=== PATIENT | female | born 1950 | race Caucasian/White ===

== ENCOUNTER 2022-11-21 06:31 | Day surgery (SDC) | payer MEDICARE ==
[~2022-11-21 06:31] MED LIST: Lactated Ringers 1,000 ML IV PRN; Sodium Chloride 0.9% 10 ML Syringe FLUSH PRN
[2022-11-21] MEDS ORDERED: Sodium Chloride 0.9% 10 ML Syringe IV ONE (06:32)
[2022-11-21] MEDS ORDERED: fentaNYL 100 MCG/2 ML SDV IV ONE (06:32)
[2022-11-21] MEDS ORDERED: Midazolam 1 MG/ML 2 ML SDV IV ONE (06:32)
[2022-11-21] MEDS ORDERED: acetaZOLAMIDE 500 MG Cap.ER PO ONE (08:45)
== END 2022-11-21 09:08 | disposition home or self-care (01) ==
LOC: FB.SDS 06:31
PROVIDERS: ATTEND Ophthalmology
DX: H26.9 Unspecified cataract (principal); I10 Essential (primary) hypertension; J44.9 Chronic obstructive pulmonary disease, unspecified; E66.01 Morbid (severe) obesity due to excess calories; Z87.891 Personal history of nicotine dependence; Z79.899 Other long term (current) drug therapy; Z68.35 Body mass index [BMI] 35.0-35.9, adult
CPT/HCPCS: 00732; 66984; A9270; J2250; J3010; J3490; V2632

== ENCOUNTER 2022-12-05 06:37 | Day surgery (SDC) | payer MEDICARE ==
[2022-12-05] MEDS ORDERED: Sodium Chloride 0.9% 10 ML Syringe IV ONE (06:38)
[2022-12-05] MEDS ORDERED: Midazolam 1 MG/ML 2 ML SDV IV ONE (06:38)
[2022-12-05] MEDS ORDERED: fentaNYL 100 MCG/2 ML SDV IV ONE (06:38)
[2022-12-05] MEDS ORDERED: Sodium Chloride 0.9% 10 ML Syringe FLUSH PRN (06:45)
[2022-12-05] MEDS ORDERED: Lactated Ringers 1,000 ML IV PRN (06:45)
[2022-12-05] MEDS ORDERED: acetaZOLAMIDE 500 MG Cap.ER PO ONE (08:30)
== END 2022-12-05 09:10 | disposition home or self-care (01) ==
LOC: FB.SDS 06:37
PROVIDERS: ATTEND Ophthalmology
DX: H26.9 Unspecified cataract (principal); I10 Essential (primary) hypertension; J44.9 Chronic obstructive pulmonary disease, unspecified; E66.01 Morbid (severe) obesity due to excess calories; Z79.899 Other long term (current) drug therapy; Z87.891 Personal history of nicotine dependence; Z68.35 Body mass index [BMI] 35.0-35.9, adult
CPT/HCPCS: 00142; 66984; A9270; J2250; J3010; J3490; V2632

== ENCOUNTER 2023-06-11 17:11 | Emergency (ER) | payer MEDICARE ==
[2023-06-11 18:05] LABS: INFLUENZA A NAA NEGATIVE (NEGATIVE); INFLUENZA B NAA NEGATIVE (NEGATIVE); RESPIRATORY SYNCYTIAL VIR NAA NEGATIVE (NEGATIVE)
[2023-06-11 18:07] LABS: CORONAVIRUS COVID-19 NAA NEGATIVE (NEGATIVE)
[2023-06-11] MEDS: Albuterol/Ipratropium 3.0-0.5 MG/3 ML Neb Soln NEB ONE ×3 (18:15→20:10)
[2023-06-11] MEDS: predniSONE 20 MG Tab PO ONE (18:15)
[2023-06-11 18:19] LABS: BLOOD UREA NITROGEN,BUN 15 mg/dL (7-18); CALCIUM 9.4 mg/dL (8.6-10.2); CARBON DIOXIDE,CO2 27 mmol/L (21-32); CHLORIDE,CL 100 mmol/L (100-110); EST CRCL DRUG DOSING (CG) 38.94 mL/min; ESTIMATED GFR 60 mL/min (>60); GLUCOSE RANDOM 128 mg/dL (80-116); POTASSIUM,K 4.1 mmol/L (3.5-5.3); SODIUM,NA 138 mmol/L (135-145)
[2023-06-11 18:24] LABS: A/G RATIO 0.8; ALANINE AMINOTRANSFERASE,ALT 37 U/L (12-36); ALBUMIN 3.8 g/dL (3.2-4.6); ALKALINE PHOSPHATASE 115 IU/L (56-112); ASPARTATE AMNIOTRANSFERASE,AST 29 IU/L (5-25); BILIRUBIN TOTAL 0.5 mg/dL (0.1-1.3); C-REACTIVE PROTEIN 2.33 mg/dL (<0.50); PROTEIN TOTAL,TP 8.4 g/dL (6.0-8.0)
[2023-06-11 18:31] LABS: HEMATOCRIT 41.6 % (34.2-48.2); HEMOGLOBIN 13.8 g/dL (11.4-15.5); MEAN CORPUSCULAR HEMOGLOBIN 28.4 pg (23.9-33.9); MEAN CORPUSCULAR HGB CONC 33.1 g/dL (31.9-34.8); MEAN CORPUSCULAR VOLUME 85.5 fL (76.7-100.5); MEAN PLATELET VOLUME 7.4 fL (7.1-12.4); PLATELET COUNT,PLT 427 x10(3)uL (151-488); RED BLOOD CELL COUNT 4.87 x10(6)uL (3.60-5.20); RED CELL DISTRIBUTION WIDTH 13.8 % (12.3-16.5); WHITE BLOOD CELL COUNT,WBC 12.9 x10-3/uL (3.0-10.3)
[2023-06-11 18:32] LABS: TROPONIN I < 4.0 pg/mL (4.0-60.3)
[2023-06-11 19:10] LABS: EOSINOPHILS PERCENT MAN 1 % (0-5); LYMPHOCYTES PERCENT MAN 14 % (13-37); MONOCYTES PERCENT MAN 3 % (4-12); SEG NEUTROPHILS PERCENT MAN 82 % (46-82)
[2023-06-11] MEDS: Iopamidol 755 Mg/ML 100 ML Bottle IV SCH (20:14)
[2023-06-11] MEDS: cefTRIAXone 1 GM in Sodium Chloride 0.9% 50 ML IV ONE (21:37)
[2023-06-11] MEDS: Sodium Chloride 0.9% 1,000 ML IV SCH (22:14)
[2023-06-11] MEDS: Dextrose 5%-Lactated Ringers 1,000 ML IV SCH (23:29)
[2023-06-12] MEDS: Acetaminophen 325 MG Tab PO ONE (06:09)
[2023-06-12] MEDS: Sodium Chloride 0.9% 1,000 ML IV SCH (06:56)
[2023-06-12] MEDS: cefTRIAXone 1 GM in Sodium Chloride 0.9% 50 ML IV ONE (07:57)
[2023-06-12] MEDS: predniSONE 20 MG Tab PO ONE (07:58)
== END 2023-06-12 11:00 | disposition home or self-care (01) ==
LOC: FB.ED 17:11
DX: J45.41 Moderate persistent asthma with (acute) exacerbation (principal); R09.02 Hypoxemia; I10 Essential (primary) hypertension; J44.89 Other specified chronic obstructive pulmonary disease; E66.9 Obesity, unspecified; R00.0 Tachycardia, unspecified; Z79.899 Other long term (current) drug therapy; Z79.51 Long term (current) use of inhaled steroids; Z87.891 Personal history of nicotine dependence; Z68.34 Body mass index [BMI] 34.0-34.9, adult
CPT/HCPCS: 0241U; 36415; 71045; 71275; 80053; 83605; 83880; 84484; 85025; 85379; 86140; 93005; 94640; 96365; 99285-25; A9270-GY; J0696; J3490; J7030; J7121; J7512; J7620; Q9967